=== PATIENT | male | born 1945 | race Caucasian/White ===

== ENCOUNTER 2017-06-26 07:31 | Inpatient (IN) | payer OTHER ==
[~2017-06-26] VITALS: Ht 195.6 cm; Wt 162.2 kg
--- NOTE | ~2017-06-26 | HC ---
[facility] [place] [address] CONSULTATION Name: JOHNYANY Room #: 212-P ADM IN .R.#: [id number] Admission: 06/26/17 Attend Phys: Yany Kan DO Discharge: Date of : 49 Report #: [id number] THIS REPORT FOR: //name// CC: FAM unknown Yany Kan DATE OF SERVICE: 06/26/2017 REASON FOR CONSULTATION: Renal failure. HISTORY OF PRESENT ILLNESS: This is a 71-year-old male who over the past couple of weeks has had progressive symptoms of urinary retention, dysuria, difficulty passing more than a few drops of urine. He was having urgency at least every 45 minute. He finally became tired of the whole process at 3:00 this morning and went to the [facility]. He was transferred here for further care. He was found to have a serum creatinine level elevated to 8.0 with a BUN of 51. His potassium level was 6.5. It was until he was transferred here that he had a Forbes catheter placed. The nurse tells me she had 2.5 liters of urine obtained through his Forbes after difficult catheterization. He has had another liter and a half since the initial placement. It has been slightly blood tinged. The patient feels significantly better, having had his bladder drained. He had a renal ultrasound done after he got here. I looked at those images, it is interpreted as having hydronephrosis of that single right kidney, but the images are very indistinct. The patient has had previous urologic issues. He has had documentation clear back to 2007 of recurring urinary tract infection, some difficulty voiding his urine. He has been on some tamsulosin throughout that whole time and he is a bit hesitant to report the full extent of his urinary symptoms over the years. It sounds like he has been frustrated with his urologic care and has not wanted to be aggressive in treating this, having his only treatment being the tamsulosin and a single dose of penicillin a day provided by a nurse practitioner. Later, as a second workup since 2007, he was seen in 2012 and an ultrasound showed a mass on his left kidney. He had left nephrectomy done at [facility] in 2012 and reportedly is free of any malignancy since that time. Again, no evidence of renal cell carcinoma. It does not sound like he has had any followup scans since that time. Again, he is very sketchy on details about any prostate history, I do not know if he has ever had a prostate biopsy done. I do not know what other discussions urology has had with the patient over the years. He did previously see a back tender, Brian Roche, of [facility] as his creatinine was elevated after his nephrectomy and he recalls being told by Dr. Roche that it was appropriately elevated based upon his age and the fact that he lost one kidney. PAST MEDICAL HISTORY: Bladder dysfunction and urine retention as noted above. Also, nephrectomy for the renal cell carcinoma as noted above. In 2007, he had [address] [address] CONSULTATION Name: JOHNYANY Room #: 212-P [facility] IN M.R.#: [id number] Admission: 06/26/17 Attend Phys: Yany Kan DO Discharge: Date of : 49 Report #: [id number] chest pain and here at this hospital had two coronary artery stents placed. He does not recall seeing a senior ruby developer in followup. He does remain on some statin therapy and an aspirin. He is also on some metoprolol. He had foot surgery as an infant. He had a GI bleed in 2007 here at this hospital with a gastric ulcer. ____ he tends to avoid medical care. MEDICATIONS ON ADMISSION: Doxazosin 4 mg b.i.d., metoprolol 25 mg b.i.d., simvastatin 40 mg daily, ranitidine 150 mg b.i.d., penicillin 500 mg daily, aspirin 81 mg daily and some fish oil 1200 mg daily. ALLERGIES: Listed to ACHROMYCIN and SULFA, although his SULFA allergy is a bit unusual, it caused him hematuria at the time he has been treated for urinary tract infection. The ACHROMYCIN caused rash. FAMILY HISTORY: Negative for renal failure. SOCIAL HISTORY: The patient is ; lives alone in [place], [place]. 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 His daughter does accompany him at this time. No smoking. REVIEW OF SYSTEMS: He is self-admittedly rather sedentary. Recently, he has had mild dyspnea with minimal exertion. No chest pain, no palpitations. He denies nausea or vomiting. Appetite has been okay. He tends to be obese and that has not changed much. He has had recent development of some lower extremity edema. He has had the incessant urinary symptoms as noted above; unaware of fevers, chills or sweats. He does have chronic tremor. PHYSICAL EXAMINATION: GENERAL: Pleasant 71-year-old male, awake, alert and oriented. VITAL SIGNS: Blood pressure 171/87, heart rate 95, temperature 99.4 degrees Fahrenheit, oxygen sat 95% and respiratory rate 18. HEENT: Shows pupils are equal and reactive. Sclerae nonicteric. Oral mucosa is moist. NECK: Veins are not distended. No adenopathy. Neck is supple. CHEST: Clear bilaterally. HEART: Regular rate and rhythm, no gallop or rub. ABDOMEN: Obese, bowel sounds are present. It is nontender. Bladder has been decompressed with the Forbes and I cannot palpate an enlarged bladder any longer. BACK: Shows no CVA tenderness at this time. He has 2+ bilateral lower extremity edema below the knees. He has 1+ pedal pulses. NEUROLOGIC: He does show an intention tremor. LABORATORY DATA: On arrival, sodium 144, potassium 6.5, chloride 110, bicarbonate 23, BUN 51, creatinine 8.0, glucose 94, calcium 8.2, magnesium 2.0, total protein 7.1, albumin 3.1. Hemoglobin 11.6, hematocrit 35.8, white count 6.1, platelets 190,000. Urinalysis after the catheterization, specific gravity [address] [address] CONSULTATION Name: YANY JOHN Room #: 212-P [facility] IN .R.#: [id number] Admission: 06/26/17 Attend Phys: Yany Kan DO Discharge: Date of : 49 Report #: [id number] less than 1.005, pH 6.0, 2+ blood, trace leukocytes, 3-10 red cells, 0-5 white cells. ASSESSMENT: 1. Acute renal failure due to his urinary obstruction. He has hydronephrosis on his ultrasound. He has made a lot of urine since the Forbes was placed and we will see how he responds to that. I looked at his ultrasound and it is very difficult to discern the renal cortex of his single remaining kidney to determine if we think that he might regain substantial function. We will have to follow his creatinine levels on a serial basis. In the interim, he needs additional IV fluids as he is having a postobstructive diuresis. He has been on half normal saline and we will increase the rate. He is also drinking a lot of water and we will let him continue to do that. We will follow along labs going forward. 2. Chronic kidney disease, likely stage 3 based upon a unilateral nephrectomy 4 years ago. We will see if his baseline creatinine gets back to that level. 3. Urine retention. He is rather strong in his avoidance of urology care, but he needs urologist. He needs further evaluation of his bladder and prostate, it has not been addressed for some time and he is obviously resistant to additional care, but certainly that is important and I spoke to him about that. 4. Hyperkalemia. That was a number of hours ago before the Forbes was placed. It should be dropping. We will recheck a level now to make sure it comes down adequately. Otherwise, we need to treat it medically until he has had chance to clear enough potassium through his bladder. 5. Four years post left nephrectomy for renal cell carcinoma. No symptoms, but I am uncertain what he has had for followup scans. 6. Coronary artery disease with coronary stents to two different arteries 9 years ago. Currently, is symptomatic. 7. Edema. Should improve with his postobstructive diuresis and improvement in his renal function. PLAN: 1. Increase his half normal saline. 2. Closely monitor urine output. 3. BMP at this time to check for followup potassium level. 4. Repeat renal function panel in the morning. 5. He needs a urologic consult and I was very firm in talking to the patient that he could no longer avoid this issue and that it does need attention. 6. We will follow along the care of this pleasant patient. <ELECTRONICALLY SIGNED> By: Michael Martinez MD 06/29/17 [id number] Michael Martinez MD /nt
[2017-06-26] MEDS ORDERED: CARDURA4 MG PO (09:48)
[2017-06-26] MEDS ORDERED: LOPRESSOR25 PO (09:49)
[2017-06-26] MEDS ORDERED: ZANTAC 150MG T150 MG PO (09:50)
[2017-06-26] MEDS ORDERED: SIMVASTATIN40 MG PO (09:50)
[2017-06-26] MEDS ORDERED: PENICILLIN V P500 MG PO (09:50)
[2017-06-26] MEDS ORDERED: ASPIR 8181 MG PO (09:51)
[2017-06-26] MEDS ORDERED: FISH OIL 1,001000 M2 PO (09:52)
[2017-06-26 11:39] VITALS: BP 152/85
[2017-06-26 14:31] LABS: HEMATOCRIT 35.8 % (42.0-52.0); HEMOGLOBIN 11.6 gm/dL (14.0-18.0); MCH 28.4 pg (26.0-34.0); MCHC 32.4 g/dL (28.0-37.0); MCV 87.7 fL (80.0-100.0); RBC 4.08 mil/uL (4.50-6.00); RDW 15.2 % (10.5-14.5); WBC 6.1 thou/uL (4.0-11.0)
[2017-06-26 14:41] LABS: ALBUMIN 3.1 g/dL (3.4-5.0); CALCIUM 8.2 mg/dL (8.5-10.1); TOTAL BILIRUBIN 0.4 mg/dL (<0.1-1.0); TOTAL PROTEIN 7.1 g/dL (6.4-8.2)
[2017-06-26 14:47] LABS: POTASSIUM 6.5 mmol/L (3.5-5.1)
[2017-06-26 15:21] VITALS: BP 152/92
[2017-06-26 15:41] LABS: URINE BILIRUBIN NEGATIVE (Negative); URINE BLOOD 2+ (Negative); URINE COLOR YELLOW; URINE GLUCOSE-RANDOM* NEGATIVE (Negative); URINE KETONES NEGATIVE (Negative); URINE PROTEIN (DIPSTICK) NEGATIVE (Negative); URINE SPECIFIC GRAVITY <= 1.005 (1.003-1.035); URINE UROBILINOGEN 0.2 E.U./dl (0.2-1.0)
[2017-06-26 15:47] LABS: URINE LEUKOCYTES-REFLEX TRACE (Negative)
[2017-06-26 15:49] LABS: CASTS None Seen /LPF (None Seen); CRYSTALS None Seen /LPF (None Seen); SQUAMOUS None Seen /LPF (0-3); URINE RBC 3-10 Few /HPF (0-2); URINE WBC-REFLEX 0-5 Rare /HPF (0-5)
[2017-06-26 19:30] VITALS: BP 171/87
[2017-06-26 20:04] LABS: CALCIUM 8.3 mg/dL (8.5-10.1); CREATININE 7.3 mg/dL (0.7-1.3)
[2017-06-26 23:56] VITALS: BP 151/87
[2017-06-27 03:02] LABS: HEMATOCRIT 35.2 % (42.0-52.0); HEMOGLOBIN 11.5 gm/dL (14.0-18.0); MCH 28.7 pg (26.0-34.0); MCHC 32.6 g/dL (28.0-37.0); PLATELET COUNT 183 thou/uL (150-400); RDW 15.3 % (10.5-14.5); WBC 8.3 thou/uL (4.0-11.0)
[2017-06-27 03:05] LABS: MANUAL DIFF YES
[2017-06-27 03:10] LABS: ALBUMIN 2.9 g/dL (3.4-5.0); CALCIUM 7.9 mg/dL (8.5-10.1); CREATININE 6.7 mg/dL (0.7-1.3); PHOSPHORUS 4.2 mg/dL (2.5-4.9)
[2017-06-27 03:20] LABS: POTASSIUM 6.1 mmol/L (3.5-5.1)
[2017-06-27 03:36] VITALS: BP 164/83
[2017-06-27 04:22] LABS: ABSOLUTE NEUTROPHILS 5.7 thou/uL (1.4-8.2); ANISOCYTOSIS SLIGHT; TOTAL CELL COUNT 100
[2017-06-27 08:00] VITALS: BP 144/76
[2017-06-27 12:00] VITALS: BP 156/86
[2017-06-27 13:52] LABS: CALCIUM 8.1 mg/dL (8.5-10.1); PHOSPHORUS 4.2 mg/dL (2.5-4.9)
[2017-06-27 13:58] LABS: CREATININE 5.5 mg/dL (0.7-1.3); POTASSIUM 4.9 mmol/L (3.5-5.1)
[2017-06-27 16:00] VITALS: BP 160/94
[2017-06-27 19:51] VITALS: BP 160/86
[2017-06-28 03:51] VITALS: BP 154/84
[2017-06-28 04:30] LABS: ALBUMIN 2.8 g/dL (3.4-5.0); CALCIUM 7.8 mg/dL (8.5-10.1); POTASSIUM 4.4 mmol/L (3.5-5.1)
[2017-06-28 04:32] LABS: CREATININE 4.3 mg/dL (0.7-1.3)
[2017-06-28 08:00] VITALS: BP 138/80
[2017-06-28 12:15] VITALS: BP 139/82
[2017-06-28 15:25] VITALS: BP 137/88
[2017-06-28 19:38] VITALS: BP 159/80
[2017-06-29 03:56] VITALS: BP 139/78
[2017-06-29 04:53] LABS: ALBUMIN 2.6 g/dL (3.4-5.0); CALCIUM 7.7 mg/dL (8.5-10.1); PHOSPHORUS 3.3 mg/dL (2.5-4.9)
[2017-06-29 07:31] VITALS: BP 139/78
[2017-06-29 11:30] VITALS: BP 140/82
[2017-06-29 16:31] VITALS: BP 135/70
[2017-06-29 19:35] VITALS: BP 140/78
[2017-06-30 03:11] LABS: HEMOGLOBIN 11.6 gm/dL (14.0-18.0); MCH 28.2 pg (26.0-34.0); MCHC 32.3 g/dL (28.0-37.0); MCV 87.5 fL (80.0-100.0); PLATELET COUNT 197 thou/uL (150-400); RBC 4.11 mil/uL (4.50-6.00); RDW 15.3 % (10.5-14.5); WBC 8.7 thou/uL (4.0-11.0)
[2017-06-30 03:15] LABS: CREATININE 2.3 mg/dL (0.7-1.3); MAGNESIUM 1.3 mg/dL (1.8-2.4); POTASSIUM 3.9 mmol/L (3.5-5.1)
[2017-06-30 03:35] LABS: MANUAL DIFF YES
[2017-06-30 04:15] VITALS: BP 135/79
[2017-06-30 04:47] LABS: ABSOLUTE NEUTROPHILS 5.7 thou/uL (1.4-8.2); TOTAL CELL COUNT 100
[2017-06-30 08:45] VITALS: BP 131/76
[2017-06-30 13:30] VITALS: BP 120/57
[2017-06-30 15:30] VITALS: BP 153/82
[2017-06-30 19:45] VITALS: BP 145/86
[2017-07-01] VITALS (8 sets, daily range): BP systolic 132–144; BP diastolic 61–90
[2017-07-01 04:09] LABS: ALBUMIN 2.5 g/dL (3.4-5.0); PHOSPHORUS 2.4 mg/dL (2.5-4.9); POTASSIUM 3.8 mmol/L (3.5-5.1)
== END 2017-07-01 15:53 | disposition home health service (06) | DRG 682 ==
LOC: 2N 07:31 → ENTRNSPT 07-01 15:45 → 2N 07-01 15:53
PROVIDERS: Hospitalist; Internal Medicine Geriatric Medicine; Internal Medicine Nephrology
DX: N17.0 Acute kidney failure with tubular necrosis (principal); E43 Unspecified severe protein-calorie malnutrition; Z68.41 Body mass index [BMI] 40.0-44.9, adult; I12.0 Hypertensive chronic kidney disease with stage 5 chronic kidney disease or end stage renal disease; N13.30 Unspecified hydronephrosis; N18.3 Chronic kidney disease, stage 3 (moderate); N40.0 Benign prostatic hyperplasia without lower urinary tract symptoms; E78.00 Pure hypercholesterolemia, unspecified; I25.10 Atherosclerotic heart disease of native coronary artery without angina pectoris; R33.9 Retention of urine, unspecified; E87.5 Hyperkalemia; Z95.5 Presence of coronary angioplasty implant and graft; Z88.1 Allergy status to other antibiotic agents; Z88.2 Allergy status to sulfonamides; Z88.8 Allergy status to other drugs, medicaments and biological substances; I25.2 Old myocardial infarction; Z85.528 Personal history of other malignant neoplasm of kidney; Z90.5 Acquired absence of kidney; Z79.899 Other long term (current) drug therapy; Z79.82 Long term (current) use of aspirin
CPT/HCPCS: 10081